=== PATIENT | female | born 1990 | race Caucasian/White ===

== ENCOUNTER 2020-10-10 15:42 | Outpatient (CLI) | payer OTHER | END 2020-10-10 17:48 | disposition home or self-care (01) | LOC: NST 15:42 | PROVIDERS: ATTEND Obstetrics & Gynecology | DX: Z34.83 Encounter for supervision of other normal pregnancy, third trimester (principal) ==

== ENCOUNTER 2020-11-21 09:05 | Outpatient (CLI) | payer OTHER | END 2020-11-21 09:31 | disposition home or self-care (01) | LOC: NST 09:05 | PROVIDERS: ATTEND Obstetrics & Gynecology Maternal & Fetal Medicine | DX: Z34.83 Encounter for supervision of other normal pregnancy, third trimester (principal) ==

== ENCOUNTER → 2020-11-28 | Outpatient (CLI) | payer OTHER | END | disposition home or self-care (01) | LOC: NST 17:00 | PROVIDERS: ATTEND Obstetrics & Gynecology | DX: O48.0 Post-term pregnancy (principal) ==

== ENCOUNTER 2020-12-03 09:01 | Outpatient (CLI) | payer OTHER | END 2020-12-03 12:57 | disposition home or self-care (01) | LOC: NST 09:01 | PROVIDERS: ATTEND Obstetrics & Gynecology | DX: Z34.83 Encounter for supervision of other normal pregnancy, third trimester (principal) ==

== ENCOUNTER 2023-06-17 16:40 | Emergency (ER) | payer OTHER ==
[~2023-06-17] VITALS: Ht 165.1 cm; Wt 78.0 kg
[2023-06-17 19:02] LABS: URINE APPEARANCE Clear; URINE BILIRRUBIN Negative (NEGATIVE); URINE BLOOD Trace; URINE COLOR Yellow; URINE GLUCOSE Negative (NEGATIVE); URINE LEUKOCYTE Negative; URINE NITRATE Negative; URINE PROTEIN Negative (NEGATIVE); URINE UROBILINOGEN 0.2 E.U./dl
[2023-06-17 19:03] LABS: URINE BACTERIA 202.7 uL (0.0-1933); URINE RBC 8.7 uL (0.0-20.8); URINE WBC 7.4 uL (0.0-23.2)
[2023-06-17 19:03] LABS: HEMATOCRIT 37.6 % (36.0-45.00); HEMOGLOBIN 12.9 g/dL (12.0-15.00); MEAN CELL VOLUME 89.4 fL (80.00-100.00); MEAN CORPUSCULAR HEMOGLOBIN 30.6 pg (27.00-32.0); MEAN CORPUSCULAR HGB CONC 34.2 g/dl (32.0-36.0); PLATELET COUNT 267 K/uL (150-450); RED BLOOD COUNT 4.21 M/uL (4.00-6.00); RED CELL DISTRIBUTION WIDTH 13.1 % (11.5-14.5)
[2023-06-17 19:42] LABS: CREATININE SERUM 0.72 mg/dL (0.55-1.02); GFR 93.87; INR < 0.93; PARTIAL THROMBOPLASTIN TIME 27.5 SECONDS (22.0-34.0); POTASSIUM 3.55 mEq/L (3.5-5.1); PROTHROMBIN TIME 9.8 SECONDS (9.0-11.5)
== END 2023-06-17 22:30 ==
LOC: ER 16:40
PROVIDERS: Nurse Practitioner Family
DX: O46.8X1 Other antepartum hemorrhage, first trimester (principal); Z3A.09 9 weeks gestation of pregnancy

== ENCOUNTER 2024-01-07 11:45 | Inpatient (IN) | payer OTHER ==
[~2024-01-07] VITALS: Ht 165.1 cm; Wt 83.9 kg
[2024-01-20] VITALS (10 sets, daily range): BP systolic 124–152; BP diastolic 56–98
[2024-01-20] MEDS ORDERED: RINGERS SOLUTION,LACTATED 1,000 ML IV SCH (01:15)
[2024-01-20 01:28] LABS: HEMATOCRIT 34.6 % (36.0-45.00); MEAN CELL VOLUME 87.7 fL (80.00-100.00); MEAN CORPUSCULAR HEMOGLOBIN 30.3 pg (27.00-32.0); MEAN CORPUSCULAR HGB CONC 34.6 g/dl (32.0-36.0); PLATELET COUNT 247 K/uL (150-450); RED BLOOD COUNT 3.94 M/uL (4.00-6.00); RED CELL DISTRIBUTION WIDTH 14.9 % (11.5-14.5)
[2024-01-20 01:51] LABS: INR < 0.93; PARTIAL THROMBOPLASTIN TIME 25.4 SECONDS (22.0-34.0); PROTHROMBIN TIME 9.5 SECONDS (9.0-11.5)
[2024-01-20 02:02] LABS: ALBUMIN 2.6 gm/dL (3.4-5.0); BILIRUBIN TOTAL 0.33 mg/dL (0.3-1.2); CALCIUM 9.2 mg/dL (8.5-10.1); CREATININE SERUM 0.74 mg/dL (0.55-1.02); GFR 90.95; GLOBULINA 3.2 G/DL (2.4-3.5); POTASSIUM 4.04 mEq/L (3.5-5.1); TOTAL PROTEIN 5.8 gm/dL (6.4-8.2)
[2024-01-20] MEDS ORDERED: PRENATAL TABLE1 EAC1 PO (03:16)
[2024-01-20] MEDS ORDERED: OXYTOCIN 1,000 ML IV SCH (03:45)
[2024-01-20] MEDS ORDERED: OxyCODONE HCL/APAP UD (PERCOCET) PO PRN (03:45)
[2024-01-20] MEDS ORDERED: IBUprofen 400 MG TABLET PO PRN (03:45)
[2024-01-20] MEDS ORDERED: CHLORHEXIDINE GLUCONATE 120 ML BOTTLE TOP ONE (05:00)
[2024-01-20] MEDS ORDERED: MORPHINE SULFATE 4 MG/ML CARTRIDGE IV ONE (05:00)
[2024-01-20] MEDS ORDERED: LIDOCAINE HCL 1% 10ML VIAL PERCUT ONE (05:00)
[2024-01-20] MEDS ORDERED: ERYTHROMYCIN BASE OPHT 1GM EACH TUBE OP ONE (05:00)
[2024-01-21 01:38] VITALS: BP 127/80
[2024-01-21 09:00] VITALS: BP 133/74
[2024-01-21] MEDS ORDERED: BENZOCAINE/MENTHOL 90 ML BOTTLE TOP SCH (09:00)
[2024-01-21 16:29] VITALS: BP 114/75
[2024-01-22] VITALS: BP 108/69
[2024-01-22 08:56] VITALS: BP 109/73
== END 2024-01-22 14:23 | disposition home or self-care (01) | DRG 807 ==
LOC: LDR 01-20 01:00 → OB/GYN 01-20 02:57
PROVIDERS: Obstetrics & Gynecology; ADMIT Obstetrics & Gynecology Maternal & Fetal Medicine; ATTEND Obstetrics & Gynecology Maternal & Fetal Medicine
PROC: 10E0XZZ Delivery of Products of Conception, External Approach (ICD-10-PCS; principal; 2024-01-20)
PROC: 0UQG7ZZ Repair Vagina, Via Natural or Artificial Opening (ICD-10-PCS; 2024-01-20)
PROC: 4A1HXCZ Monitoring of Products of Conception, Cardiac Rate, External Approach (ICD-10-PCS; 2024-01-20)
DX: O71.4 Obstetric high vaginal laceration alone (principal); Z37.0 Single live birth; Z3A.39 39 weeks gestation of pregnancy; Z20.822 Contact with and (suspected) exposure to COVID-19

== ENCOUNTER 2024-01-14 12:46 | Outpatient (CLI) | payer OTHER | END 2024-01-14 13:34 | disposition home or self-care (01) | LOC: NST 12:46 | PROVIDERS: ATTEND Obstetrics & Gynecology | DX: Z34.83 Encounter for supervision of other normal pregnancy, third trimester (principal) ==